=== PATIENT | female | born 1990 | race Caucasian/White ===

== ENCOUNTER → 2017-11-10 | Outpatient (CLI) | payer BC ==
[~2017-11-10] MED LIST: BUPIVACAINE MPF 0.5% 30 ML VIAL. ONE; LIDOCAINE 1% PF 30 ML VIAL. ONE; methylPREDNISolone ACETATE 40 MG/ML VIAL. ONE
== END | disposition home or self-care (01) ==
LOC: SURG 11:35
PROVIDERS: ATTEND Anesthesiology Pain Medicine
DX: G58.8 Other specified mononeuropathies (principal); I10 Essential (primary) hypertension
CPT/HCPCS: 64421; J1030; J2001; J3490